=== PATIENT | male | born 1980 | race Caucasian/White ===

== ENCOUNTER 2016-12-09 19:27 | Emergency (ER) | payer OTHER ==
[~2016-12-09] VITALS: Ht 180.3 cm; Wt 136.4 kg
[~2016-12-09 19:27] MED LIST: ASPI81TA3 PO; LEVO750T9 PO
[2016-12-09 19:33] VITALS: BP 144/97; PULSE 107; RESP 15; O2SAT 100
--- NOTE | 2016-12-09 19:40 | ED.REPORT ---
HPI- Male Date of Service Dec 09, 2016 ED Provider: José Luis Goldman MD Patient is a 36 year old male with a history of kidney stones who presents to the ED complaining of left testicle pain and swelling that began at 2pm this afternoon. Patient reports first developing lower back pain at 12pm today while driving to work. He states that he later developed pain of his testicle, with swelling per both his examination and that of his . His pain is improved when laying down. Patient states that his pain today was not similar to what he experiences with kidney stones. He reports associated mild abdominal pain but denies hematuria, dysuria, nausea, vomiting, fever, or penile discharge. Nursing Notes Stated Complaint: TESTICLE PAIN Chief Complaint: Male Abdominal Pain Nursing Notes Reviewed: Yes Allergies: Coded Allergies: No Known Allergies (Verified , 12/09/16) Scheduled Levofloxacin (Levaquin) 500 Mg Tablet 500 MG PO DAILY General Time Seen by MD: 19:39 Chief Complaint Testicle painful left, Testicle swollen left Hx Obtained From: Patient Arrived By: Walk-in Onset Occurred: 5 - 8 hours ago Symptom Duration: Since onset Location: : Testicle left Quality: Painful Severity: Current: Moderate Severity: Maximum: Severe Recent Healthcare: No recent doctor visit, No recent hospitalization Similar Sx Previous: No Past Medical History Past Medical History Admit January 2016 for possible NSTEMI, no underlying process found on evaluation. Viral pericarditis vs noncardiac chest pain Past Surgical History Reports: Inguinal hernia repair Smoking History Former Smoker Social History none reported Drug Use: THC Other Social History: Good social support, , Local resident Ambulatory Status Independent Review of Systems Constitutional: Denies: Chills, Fever GI: Denies: Nausea, Vomiting Male: Reports Testicular pain, Reports Testicular swelling, Denies Dysuria, Denies Hematuria, Denies Penile discharge Musculoskeletal: Reports: Back pain Complete sys rev & neg: except as marked. Physical Exam Initial Vital Signs Vital Signs (First) Date Time Temp Pulse Resp B/P Pulse Ox O2 Delivery O2 Flow Rate FiO2 12/09/16 19:33 36.1 107 15 144/97 100 Room Air Initial VS: Reviewed Head / Eyes: Atraumatic, Normocephalic, PERRL ENT: Conjunctiva normal, No scleral icterus Neck: Supple, Full range of motion Extremities: Vascular intact, Neuro intact Skin: Warm, Dry, No cyanosis Neurologic: Alert, Oriented, Nonfocal Psychiatric: Mood/affect normal, Behavior normal, Normal thought content Male Genitourinary: Penis NL, No hernia Testes / Epidid / Scrotum: Positive: Epididymis tender L (and engorged), Testis enlarged L (swollen), Testis tender L, Negative: Testis enlarged R, Testis tender R General/Constitutional: Awake, Alert, No acute distress Abdomen: Soft, No guarding, No rebound, BS normoactive Tenderness/Guarding/Rebound: Positive: Tender LLQ... (Mild) Back: Atraumatic, No CVA tenderness Rectum / Perineum: Blood - occult heme -, Prostate NL (nontender and normal in size) no stool in vault Interpretation & Diagnostics Interpretation & Diagnostics: US TESTICULAR IMPRESSION: 1. No evidence of testicular torsion or epididymitis. Dictated by: Negrito Wing M.D. on 12/09/2016 at 21:52 Approved by: Negrito Wing M.D. on 12/09/2016 at 21:52 Lab Results Interpretation Test 12/09/16 21:08 Urine Color Yellow (YELLOW) Urine Appearance Clear (CLEAR,HAZY) Urine pH 5.5 (5.0-8.0) Urine Specific [place] 1.020 (1.003-1.035) Urine Protein Negativemg/dL (NEG,TRACE) Urine Glucose (UA) Negativemg/dL (NEGATIVE) Urine Ketones Negativemg/dL (NEGATIVE) Urine Occult Blood Moderate (NEGATIVE) Urine Nitrite Negative (NEGATIVE) Urine Bilirubin Negative (NEGATIVE) Urine Urobilinogen Normalmg/dL (NORMAL) Urine Leukocyte Esterase Negative (NEGATIVE) Urine RBC 0-2/hpf (0-2) Urine WBC 0-5/hpf (0-5) Urine Epithelial Cells None/hpf (NONE-MOD) Urine Crystals None seen (NONE SEEN) Urine Bacteria Few/hpf (NONE-FEW) Urine Hyaline Casts None/lpf (NONE) Urine Granular Casts None seen (NONE SEEN) Urine Waxy Casts None seen (NONE SEEN) Urine Red Blood Cell Casts None seen (NONE SEEN) Urine White Blood Cell Casts None seen (NONE SEEN) Urine Mucus None seen (None Seen) Urine Trichomonas None seen (NONE SEEN) Urine Yeast None (NONE SEEN) Urinalysis Comment None Urine Culture Reflexed Not indicated Re-Eval/Medical Decision Source of Hx: Old records Re-Evaluation/Progress #1: Time of Eval: 21:30 Re-Evaluation/Progress Note: Informed the patient of the US results. Exam is consistent with epididymitis. Awaiting urinalysis. Re-Evaluation/Progress #2: Time of Eval: 21:48 Patient Status: Condition improved Re-Evaluation/Progress Note: Informed the patient of the results of his urine. Patient understands and agrees with the plan to be discharged home. Discharge instructions and follow-up discussed. All questions were addressed. Return to the ED warnings given. Counseled Regarding: Diagnosis, Need for follow-up, When/why to return to ED Discharge & Departure Impression: Primary Impression: Orchitis, epididymitis, and epididymo-orchitis Disposition: Home Discharge Condition All VS Reviewed: Yes Condition: Stable Patient Instructions: Epididymitis (ED) Additional Instructions: Emergency department evaluation today included interview, examination, review of old records, urinalysis, and testicular ultrasound. there is no torsion ( twisting) of the testicle, swelling and tenderness are likely related to an infection causing inflammation of the testicle. Use levaquin 500mg daily for 10 days. Ibuprofen 600-800mg every 6-8 hours as needed for pain. Elevate scrotum when able. Wear supportive underwear. Follow up with resident's clinic in 4-5 days, return to ED for fevers, vomiting increasing pain. Referrals: [facility] (PCP) [place] Attestation Portions of this note were transcribed by Liv Radford. I, Dr. Goldman personally performed the history, physical exam and medical decision-making; I reviewed and confirmed the accuracy of the information in the transcribed note. Signed by: Bernardo Milton, 12/09/2016 [id number] copies to: [facility] José Luis Goldman MD Dec 09, 2016 19:40 Liv Radford Dec 09, 2016 19:42
[2016-12-09 21:35] LABS: APPEARANCE,URINE CLEAR (CLEAR,HAZY); COLOR,URINE YELLOW (YELLOW); PH,URINE 5.5 (5.0-8.0)
[2016-12-09 21:36] LABS: OCCULT BLOOD,URINE MODERATE (NEGATIVE); UROBILINOGEN,URINE NORMAL (NORMAL)
[2016-12-09] MEDS ORDERED: LEVO500T16 PO (21:50)
[2016-12-09] MEDS ORDERED: levoFLOXacin 500 mg Tablet PO ONE (21:50)
[2016-12-09] MEDS ORDERED: levoFLOXacin 250 mg Tablet ONE (21:53)
--- NOTE | 2016-12-09 21:53 | DRSVH ---
PROCEDURE: US TESTICULAR SONOGRAM WITH DOPPLER INDICATIONS: L testicular pain TECHNIQUE: Real-time scanning was performed of the scrotum and testicles, with image documentation. Color and p ulse Doppler interrogation was performed of both testicles. COMPARISON: None. FINDINGS: Right: Testicle is normal in size at 4.5 x 2.2 x 2.9 cm, and homogenous in echotexture. Epididymis is normal in overall size. There is a small 3-4 mm right epididymal head cyst or spermatocele. No h ydrocele or varicoceles. Overlying scrotal skin is normal in thickness. Left: Testicle is normal in size at 4.6 x 2.5 x 3.0 cm, and homogeneous in echotexture. Epididymis is normal in overall size and morphology. No hydrocele or varicoceles. Overlying scrotal skin is no rmal in thickness. Doppler: Color and pulse Doppler demonstrate normal and symmetric arterial flow in both testicles. There is patent venous flow demonstrated bilaterally. IMPRESSION: 1. No evidence of testicular torsion or epididymitis. Dictated by: Negrito Wing M.D. on 12/09/2016 at 21:52 Approved by: Negrito Wing M.D. on 12/09/2016 at 21:52
[2016-12-09 21:58] VITALS: BP 144/74; PULSE 94; RESP 20; O2SAT 96
== END 2016-12-09 21:57 | disposition home or self-care (01) ==
LOC: SED 19:27
DX: N45.3 Epididymo-orchitis (principal); F12.10 Cannabis abuse, uncomplicated; Z87.891 Personal history of nicotine dependence